=== PATIENT | male | born 1960 | race Caucasian/White ===

== ENCOUNTER 2018-05-13 14:40 | Inpatient (IN) | payer MEDICAID, OTHER, SELFPAY ==
[2018-05-13 15:31] LABS: HEMATOCRIT 33.3 % (42.0-52.0); HEMOGLOBIN 11.3 g/dl (13.5-17.5); MEAN CORPUSCULAR HEMOGLOBIN 31.5 pg (27.0-33.0); MEAN CORPUSCULAR HGB CONC 33.9 g/dl (32.0-36.5); MEAN CORPUSCULAR VOLUME 92.8 fl (80.0-96.0); PLATELET COUNT, AUTOMATED 244 10^3/uL (150-450); RED BLOOD COUNT 3.59 10^6/uL (4.30-6.10); RED CELL DISTRIBUTION WIDTH 13.3 % (11.5-14.5); WHITE BLOOD COUNT 5.3 10^3/uL (4.0-10.0)
[2018-05-13 16:06] LABS: ACETAMINOPHEN LEVEL 2.5 UG/ML (10.0-30.0); ALBUMIN 3.2 GM/DL (3.2-5.2); ALBUMIN/GLOBULIN RATIO 1.28 (1.00-1.93); ALKALINE PHOSPHATASE 64 U/L (45-117); ALT/SGPT 17 U/L (12-78); ANION GAP 6 MEQ/L (8-16); AST/SGOT 39 U/L (7-37); BILIRUBIN,DIRECT 0.2 MG/DL (0.0-0.2); BILIRUBIN,TOTAL 0.9 MG/DL (0.2-1.0); BLOOD UREA NITROGEN 6 MG/DL (7-18); CALCIUM LEVEL 7.4 MG/DL (8.5-10.1); CARBON DIOXIDE LEVEL 28 MEQ/L (21-32); CHLORIDE LEVEL 105 MEQ/L (98-107); ETHYL ALCOHOL (ETHANOL) 0.004 % (0.000-0.010); GLOMERULAR FILTRATION RATE > 60.0 (>56); GLUCOSE, FASTING 93 MG/DL (70-100); POTASSIUM SERUM 4.1 MEQ/L (3.5-5.1); SALICYLATE LEVEL < 1.7 MG/DL (5.0-30.0); SODIUM LEVEL 139 MEQ/L (136-145); TOTAL PROTEIN 5.7 GM/DL (6.4-8.2)
[2018-05-13 16:24] LABS: AMPHETAMINES LEVEL URINE NEGATIVE (NEGATIVE); BARBITURATES URINE NEGATIVE (NEGATIVE); BENZODIAZEPINES URINE NEGATIVE (NEGATIVE); CANNABINOIDS URINE NEGATIVE (NEGATIVE); COCAINE METABOLITE URINE NEGATIVE (NEGATIVE); METHADONE URINE NEGATIVE (NEGATIVE); OPIATES URINE NEGATIVE (NEGATIVE); PHENCYCLIDINE URINE NEGATIVE (NEGATIVE)
[2018-05-13 16:32] LABS: FREE T4 0.54 NG/DL (0.76-1.46)
[2018-05-13] MEDS ORDERED: MOM 30ML SUSPENSION UDC PO (18:30)
[2018-05-13] MEDS ORDERED: ACETAMINOPHEN TAB 650MG DOSE (2X325MG) PO (18:30)
[2018-05-13] MEDS ORDERED: MAALOX 30 ML SUSP *UDC PO (18:30)
[2018-05-13] MEDS ORDERED: traZODone 50 MG TAB PO (18:30)
[2018-05-13] MEDS: NICOTINE 21MG/24HR 1 EA TRANSDERMAL TD (18:58)
[2018-05-13] MEDS ORDERED: NICOTINE 21MG/24HR 1 EA TRANSDERMAL TD (21:00)
[2018-05-14] MEDS ORDERED: LEVOTHYROXINE 25MCG TABLET (0.025MG) PO (06:00)
[2018-05-14] MEDS: LEVOTHYROXINE 25MCG TABLET (0.025MG) PO (06:29)
[2018-05-14] MEDS: NICOTINE 21MG/24HR 1 EA TRANSDERMAL TD (08:53)
[2018-05-15] MEDS: LEVOTHYROXINE 25MCG TABLET (0.025MG) PO (06:10)
[2018-05-15 07:46] LABS: BASO % 0.9 % (0.0-1.0); EOS # 0.2 10^3/uL (0.0-0.50); EOS % 4.1 % (0.0-3.0); HEMATOCRIT 30.7 % (42.0-52.0); HEMOGLOBIN 10.7 g/dl (13.5-17.5); IMMATURE GRANULOCYTE % 0.5 % (0-3.0); LYMPH # 2.3 10^3/uL (1.5-4.5); LYMPH % 51.8 % (24.0-44.0); MEAN CORPUSCULAR HGB CONC 34.9 g/dl (32.0-36.5); MEAN CORPUSCULAR VOLUME 91.9 fl (80.0-96.0); MONO # 0.4 10^3/uL (0.0-0.8); MONO % 8.3 % (0.0-5.0); NEUTROPHILS # 1.5 10^3/uL (1.8-7.7); NEUTROPHILS % 34.4 % (36.0-66.0); PLATELET COUNT, AUTOMATED 243 10^3/uL (150-450); RED BLOOD COUNT 3.34 10^6/uL (4.30-6.10); RED CELL DISTRIBUTION WIDTH 13.2 % (11.5-14.5); WHITE BLOOD COUNT 4.4 10^3/uL (4.0-10.0)
[2018-05-15 08:10] LABS: FERRITIN 276 NG/ML (26-388); IRON (FE) 63 UG/DL (65-175); PERCENT SATURATION 42.9 % (19.7-50.0); TOTAL IRON BINDING CAPACITY 147 UG/DL (250-450)
[2018-05-15] MEDS: CALCIUM/VITAMIN D 500 MG TAB PO ×2 (08:58→20:30)
[2018-05-15] MEDS: NICOTINE 21MG/24HR 1 EA TRANSDERMAL TD (08:58)
[2018-05-15] MEDS: VITAMIN D 50,000 UNITS CAPSULE (ERGOCALCIFEROL 1.25MG) PO (10:52)
[2018-05-15] MEDS: FERROUS SULFATE 325MG TAB PO (15:24)
[2018-05-16] MEDS: LEVOTHYROXINE 25MCG TABLET (0.025MG) PO (06:16)
[2018-05-16 07:14] LABS: BASO % 0.7 % (0.0-1.0); EOS # 0.2 10^3/uL (0.0-0.50); EOS % 3.5 % (0.0-3.0); HEMATOCRIT 29.8 % (42.0-52.0); HEMOGLOBIN 10.3 g/dl (13.5-17.5); IMMATURE GRANULOCYTE % 0.2 % (0-3.0); LYMPH # 2.2 10^3/uL (1.5-4.5); LYMPH % 51.8 % (24.0-44.0); MEAN CORPUSCULAR HEMOGLOBIN 31.7 pg (27.0-33.0); MEAN CORPUSCULAR HGB CONC 34.6 g/dl (32.0-36.5); MEAN CORPUSCULAR VOLUME 91.7 fl (80.0-96.0); MONO # 0.4 10^3/uL (0.0-0.8); MONO % 9.2 % (0.0-5.0); NEUTROPHILS # 1.5 10^3/uL (1.8-7.7); NEUTROPHILS % 34.6 % (36.0-66.0); PLATELET COUNT, AUTOMATED 223 10^3/uL (150-450); RED BLOOD COUNT 3.25 10^6/uL (4.30-6.10); RED CELL DISTRIBUTION WIDTH 13.2 % (11.5-14.5); WHITE BLOOD COUNT 4.2 10^3/uL (4.0-10.0)
[2018-05-16 08:04] LABS: ALBUMIN 3.1 GM/DL (3.2-5.2); ALBUMIN/GLOBULIN RATIO 1.15 (1.00-1.93); ALKALINE PHOSPHATASE 60 U/L (45-117); ALT/SGPT 15 U/L (12-78); ANION GAP 5 MEQ/L (8-16); AST/SGOT 33 U/L (7-37); BILIRUBIN,TOTAL 0.8 MG/DL (0.2-1.0); BLOOD UREA NITROGEN 10 MG/DL (7-18); CALCIUM LEVEL 8.3 MG/DL (8.5-10.1); CARBON DIOXIDE LEVEL 27 MEQ/L (21-32); CHLORIDE LEVEL 106 MEQ/L (98-107); CREATININE FOR GFR 0.85 MG/DL (0.70-1.30); GLOMERULAR FILTRATION RATE > 60.0 (>56); GLUCOSE, FASTING 80 MG/DL (70-100); POTASSIUM SERUM 4.3 MEQ/L (3.5-5.1); SODIUM LEVEL 138 MEQ/L (136-145); TOTAL PROTEIN 5.8 GM/DL (6.4-8.2)
[2018-05-16] MEDS: FERROUS SULFATE 325MG TAB PO (08:22)
[2018-05-16] MEDS: NICOTINE 21MG/24HR 1 EA TRANSDERMAL TD (08:22)
[2018-05-16] MEDS: CALCIUM/VITAMIN D 500 MG TAB PO ×2 (08:22→20:54)
[2018-05-17] MEDS: LEVOTHYROXINE 25MCG TABLET (0.025MG) PO (06:20)
[2018-05-17] MEDS: CALCIUM/VITAMIN D 500 MG TAB PO ×2 (08:55→21:07)
[2018-05-17] MEDS: FERROUS SULFATE 325MG TAB PO ×2 (08:56→21:07)
[2018-05-17] MEDS: NICOTINE 21MG/24HR 1 EA TRANSDERMAL TD (08:57)
[2018-05-17] MEDS: NEPHRO-VIT TAB (NEPHROCAPS) PO (18:12)
[2018-05-18] MEDS: LEVOTHYROXINE 50MCG TABLET (0.05MG) PO (06:19)
[2018-05-18 08:00] LABS: FERRITIN 252 NG/ML (26-388)
[2018-05-18] MEDS: FERROUS SULFATE 325MG TAB PO ×2 (09:28→20:11)
[2018-05-18] MEDS: NEPHRO-VIT TAB (NEPHROCAPS) PO (09:28)
[2018-05-18] MEDS: CALCIUM/VITAMIN D 500 MG TAB PO ×2 (09:28→20:11)
[2018-05-18] MEDS: NICOTINE 21MG/24HR 1 EA TRANSDERMAL TD (09:28)
[2018-05-19] MEDS: LEVOTHYROXINE 50MCG TABLET (0.05MG) PO (05:54)
[2018-05-19 07:22] LABS: HEMATOCRIT 29.8 % (42.0-52.0); HEMOGLOBIN 10.1 g/dl (13.5-17.5); MEAN CORPUSCULAR HGB CONC 33.9 g/dl (32.0-36.5); MEAN CORPUSCULAR VOLUME 94.3 fl (80.0-96.0); PLATELET COUNT, AUTOMATED 220 10^3/uL (150-450); RED BLOOD COUNT 3.16 10^6/uL (4.30-6.10); RED CELL DISTRIBUTION WIDTH 13.7 % (11.5-14.5); WHITE BLOOD COUNT 4.6 10^3/uL (4.0-10.0)
[2018-05-19] MEDS: CALCIUM/VITAMIN D 500 MG TAB PO ×2 (09:20→20:16)
[2018-05-19] MEDS: FERROUS SULFATE 325MG TAB PO ×2 (09:20→20:16)
[2018-05-19] MEDS: NICOTINE 21MG/24HR 1 EA TRANSDERMAL TD (09:20)
[2018-05-19] MEDS: NEPHRO-VIT TAB (NEPHROCAPS) PO (09:20)
[2018-05-19 16:53] LABS: LEAD BLOOD ADULT 1 ug/dL (0-4)
[2018-05-20] MEDS: LEVOTHYROXINE 50MCG TABLET (0.05MG) PO (06:39)
[2018-05-20 07:28] LABS: HEMATOCRIT 31.2 % (42.0-52.0); HEMOGLOBIN 10.5 g/dl (13.5-17.5); MEAN CORPUSCULAR HEMOGLOBIN 31.6 pg (27.0-33.0); MEAN CORPUSCULAR HGB CONC 33.7 g/dl (32.0-36.5); PLATELET COUNT, AUTOMATED 226 10^3/uL (150-450); RED BLOOD COUNT 3.32 10^6/uL (4.30-6.10); RED CELL DISTRIBUTION WIDTH 13.4 % (11.5-14.5); WHITE BLOOD COUNT 4.8 10^3/uL (4.0-10.0)
[2018-05-20 07:56] LABS: ALBUMIN 3.2 GM/DL (3.2-5.2); ALBUMIN/GLOBULIN RATIO 1.14 (1.00-1.93); ALKALINE PHOSPHATASE 56 U/L (45-117); ALT/SGPT 17 U/L (12-78); ANION GAP 6 MEQ/L (8-16); AST/SGOT 31 U/L (7-37); BILIRUBIN,TOTAL 0.6 MG/DL (0.2-1.0); BLOOD UREA NITROGEN 14 MG/DL (7-18); CALCIUM LEVEL 8.4 MG/DL (8.5-10.1); CARBON DIOXIDE LEVEL 28 MEQ/L (21-32); CHLORIDE LEVEL 106 MEQ/L (98-107); GLOMERULAR FILTRATION RATE > 60.0 (>56); GLUCOSE, FASTING 67 MG/DL (70-100); POTASSIUM SERUM 4.3 MEQ/L (3.5-5.1); SODIUM LEVEL 140 MEQ/L (136-145)
[2018-05-20] MEDS: NICOTINE 21MG/24HR 1 EA TRANSDERMAL TD (08:55)
[2018-05-20] MEDS: NEPHRO-VIT TAB (NEPHROCAPS) PO (08:55)
[2018-05-20] MEDS: CALCIUM/VITAMIN D 500 MG TAB PO ×2 (08:55→21:00)
[2018-05-20] MEDS: FERROUS SULFATE 325MG TAB PO ×2 (08:55→21:00)
[2018-05-21] MEDS: LEVOTHYROXINE 50MCG TABLET (0.05MG) PO (06:24)
[2018-05-21] MEDS: NICOTINE 21MG/24HR 1 EA TRANSDERMAL TD (09:56)
[2018-05-21] MEDS: NEPHRO-VIT TAB (NEPHROCAPS) PO (09:57)
[2018-05-21] MEDS: CALCIUM/VITAMIN D 500 MG TAB PO ×2 (09:57→22:12)
[2018-05-21] MEDS: FERROUS SULFATE 325MG TAB PO ×2 (09:57→21:20)
[2018-05-22] MEDS: LEVOTHYROXINE 50MCG TABLET (0.05MG) PO (06:12)
[2018-05-22] MEDS: NICOTINE 21MG/24HR 1 EA TRANSDERMAL TD (09:23)
[2018-05-22] MEDS: NEPHRO-VIT TAB (NEPHROCAPS) PO (09:23)
[2018-05-22] MEDS: VITAMIN D 50,000 UNITS CAPSULE (ERGOCALCIFEROL 1.25MG) PO (09:23)
[2018-05-22] MEDS: FERROUS SULFATE 325MG TAB PO (09:23)
[2018-05-22] MEDS: CALCIUM/VITAMIN D 500 MG TAB PO (11:43)
== END 2018-05-22 16:48 | disposition home or self-care (01) | DRG 751 ==
LOC: M ED 14:40 → M ED INP 18:17 → M PSY 19:43
DX: F32.3 Major depressive disorder, single episode, severe with psychotic features (principal); E55.9 Vitamin D deficiency, unspecified; E03.9 Hypothyroidism, unspecified; Z79.899 Other long term (current) drug therapy; F17.210 Nicotine dependence, cigarettes, uncomplicated; E87.6 Hypokalemia; R63.6 Underweight; Z68.1 Body mass index [BMI] 19.9 or less, adult; D64.9 Anemia, unspecified

== ENCOUNTER 2018-07-05 09:49 | Inpatient (IN) | payer MEDICAID, OTHER ==
[2018-07-05 11:05] LABS: HEMOGLOBIN 13.1 g/dl (13.5-17.5); MEAN CORPUSCULAR HEMOGLOBIN 32.4 pg (27.0-33.0); MEAN CORPUSCULAR HGB CONC 34.5 g/dl (32.0-36.5); MEAN CORPUSCULAR VOLUME 94.1 fl (80.0-96.0); PLATELET COUNT, AUTOMATED 253 10^3/uL (150-450); RED BLOOD COUNT 4.04 10^6/uL (4.30-6.10); WHITE BLOOD COUNT 5.4 10^3/uL (4.0-10.0)
[2018-07-05 11:23] LABS: AMPHETAMINES LEVEL URINE NEGATIVE (NEGATIVE); BARBITURATES URINE NEGATIVE (NEGATIVE); BENZODIAZEPINES URINE NEGATIVE (NEGATIVE); CANNABINOIDS URINE NEGATIVE (NEGATIVE); COCAINE METABOLITE URINE NEGATIVE (NEGATIVE); METHADONE URINE NEGATIVE (NEGATIVE); OPIATES URINE NEGATIVE (NEGATIVE); PHENCYCLIDINE URINE NEGATIVE (NEGATIVE)
[2018-07-05 11:49] LABS: ACETAMINOPHEN LEVEL < 2.0 UG/ML (10.0-30.0); ALBUMIN 3.8 GM/DL (3.2-5.2); ALBUMIN/GLOBULIN RATIO 1.46 (1.00-1.93); ALKALINE PHOSPHATASE 55 U/L (45-117); ALT/SGPT 19 U/L (12-78); ANION GAP 5 MEQ/L (8-16); AST/SGOT 31 U/L (7-37); BILIRUBIN,DIRECT 0.2 MG/DL (0.0-0.2); BILIRUBIN,TOTAL 0.9 MG/DL (0.2-1.0); BLOOD UREA NITROGEN 11 MG/DL (7-18); CALCIUM LEVEL 8.4 MG/DL (8.5-10.1); CARBON DIOXIDE LEVEL 28 MEQ/L (21-32); CHLORIDE LEVEL 105 MEQ/L (98-107); CREATININE FOR GFR 0.96 MG/DL (0.70-1.30); ETHYL ALCOHOL (ETHANOL) 0.003 % (0.000-0.010); FREE T4 0.36 NG/DL (0.76-1.46); GLOMERULAR FILTRATION RATE > 60.0 (>56); GLUCOSE, FASTING 62 MG/DL (70-100); POTASSIUM SERUM 4.3 MEQ/L (3.5-5.1); SALICYLATE LEVEL 2.4 MG/DL (5.0-30.0); SODIUM LEVEL 138 MEQ/L (136-145); TOTAL PROTEIN 6.4 GM/DL (6.4-8.2)
[2018-07-05] MEDS: LEVOTHYROXINE 50MCG TABLET (0.05MG) PO (12:25)
[2018-07-05] MEDS ORDERED: MOM 30ML SUSPENSION UDC PO (13:15)
[2018-07-05] MEDS ORDERED: LORazepam 1 MG TAB PO (13:15)
[2018-07-05] MEDS ORDERED: MAALOX 30 ML SUSP *UDC PO (13:15)
[2018-07-05] MEDS ORDERED: ACETAMINOPHEN TAB 650MG DOSE (2X325MG) PO (13:15)
[2018-07-05] MEDS ORDERED: OLANZapine ORAL DISINTEGRATING TAB 5MG PO (13:15)
[2018-07-05] MEDS: NEPHRO-VIT TAB (NEPHROCAPS) PO (15:39)
[2018-07-05] MEDS: MULTIVITAMINS/MINERALS THERAP 1 TAB PO (15:39)
[2018-07-05] MEDS: NICOTINE 21MG/24HR 1 EA TRANSDERMAL TD (17:19)
[2018-07-05] MEDS: OYSTER SHELL CALCIUM 500 MG TAB PO (20:25)
[2018-07-05] MEDS: FERROUS SULFATE 325MG TAB PO (20:25)
[2018-07-06] MEDS: LEVOTHYROXINE 50MCG TABLET (0.05MG) PO (06:05)
[2018-07-06] MEDS: FERROUS SULFATE 325MG TAB PO ×2 (08:49→20:44)
[2018-07-06] MEDS: OYSTER SHELL CALCIUM 500 MG TAB PO ×2 (08:49→20:44)
[2018-07-06] MEDS: MULTIVITAMINS/MINERALS THERAP 1 TAB PO (08:49)
[2018-07-06] MEDS: VITAMIN D 50,000 UNITS CAPSULE (ERGOCALCIFEROL 1.25MG) PO (08:49)
[2018-07-06] MEDS: NEPHRO-VIT TAB (NEPHROCAPS) PO (08:49)
[2018-07-06] MEDS: NICOTINE 21MG/24HR 1 EA TRANSDERMAL TD (08:49)
[2018-07-06] MEDS: PALIPERIDONE 3 MG ER TAB (INVEGA) PO (14:54)
[2018-07-07] MEDS: LEVOTHYROXINE 50MCG TABLET (0.05MG) PO (05:09)
[2018-07-07] MEDS: FERROUS SULFATE 325MG TAB PO ×2 (08:58→21:47)
[2018-07-07] MEDS: NEPHRO-VIT TAB (NEPHROCAPS) PO (08:59)
[2018-07-07] MEDS: OYSTER SHELL CALCIUM 500 MG TAB PO ×2 (08:59→21:47)
[2018-07-07] MEDS: PALIPERIDONE 3 MG ER TAB (INVEGA) PO (08:59)
[2018-07-07] MEDS: MULTIVITAMINS/MINERALS THERAP 1 TAB PO (08:59)
[2018-07-07] MEDS: NICOTINE 21MG/24HR 1 EA TRANSDERMAL TD (08:59)
[2018-07-08] MEDS: LEVOTHYROXINE 50MCG TABLET (0.05MG) PO (06:20)
[2018-07-08 06:45] LABS: BASO % 0.5 % (0.0-1.0); EOS # 0.2 10^3/uL (0.0-0.50); EOS % 4.1 % (0.0-3.0); HEMATOCRIT 30.8 % (42.0-52.0); HEMOGLOBIN 10.7 g/dl (13.5-17.5); IMMATURE GRANULOCYTE % 0.2 % (0-3.0); LYMPH # 2.1 10^3/uL (1.5-4.5); MEAN CORPUSCULAR HEMOGLOBIN 32.8 pg (27.0-33.0); MEAN CORPUSCULAR HGB CONC 34.7 g/dl (32.0-36.5); MEAN CORPUSCULAR VOLUME 94.5 fl (80.0-96.0); MONO # 0.4 10^3/uL (0.0-0.8); MONO % 9.8 % (0.0-5.0); NEUTROPHILS # 1.4 10^3/uL (1.8-7.7); NEUTROPHILS % 34.4 % (36.0-66.0); PLATELET COUNT, AUTOMATED 172 10^3/uL (150-450); RED BLOOD COUNT 3.26 10^6/uL (4.30-6.10); WHITE BLOOD COUNT 4.2 10^3/uL (4.0-10.0)
[2018-07-08 07:07] LABS: ALBUMIN 3.2 GM/DL (3.2-5.2); ALBUMIN/GLOBULIN RATIO 1.39 (1.00-1.93); ALKALINE PHOSPHATASE 47 U/L (45-117); ALT/SGPT 25 U/L (12-78); ANION GAP 6 MEQ/L (8-16); AST/SGOT 41 U/L (7-37); BILIRUBIN,TOTAL 0.5 MG/DL (0.2-1.0); BLOOD UREA NITROGEN 17 MG/DL (7-18); CALCIUM LEVEL 8.4 MG/DL (8.5-10.1); CARBON DIOXIDE LEVEL 28 MEQ/L (21-32); CHLORIDE LEVEL 106 MEQ/L (98-107); GLOMERULAR FILTRATION RATE > 60.0 (>56); GLUCOSE, FASTING 95 MG/DL (70-100); POTASSIUM SERUM 4.2 MEQ/L (3.5-5.1); SODIUM LEVEL 140 MEQ/L (136-145); TOTAL PROTEIN 5.5 GM/DL (6.4-8.2)
[2018-07-08] MEDS: MULTIVITAMINS/MINERALS THERAP 1 TAB PO (08:24)
[2018-07-08] MEDS: NICOTINE 21MG/24HR 1 EA TRANSDERMAL TD (08:24)
[2018-07-08] MEDS: NEPHRO-VIT TAB (NEPHROCAPS) PO (08:24)
[2018-07-08] MEDS: PALIPERIDONE 3 MG ER TAB (INVEGA) PO (08:24)
[2018-07-08] MEDS: FERROUS SULFATE 325MG TAB PO ×2 (08:24→21:11)
[2018-07-08] MEDS: OYSTER SHELL CALCIUM 500 MG TAB PO ×2 (08:24→21:11)
[2018-07-09] MEDS: LEVOTHYROXINE 50MCG TABLET (0.05MG) PO (06:00)
[2018-07-09] MEDS: PALIPERIDONE 3 MG ER TAB (INVEGA) PO (09:50)
[2018-07-09] MEDS: MULTIVITAMINS/MINERALS THERAP 1 TAB PO (09:50)
[2018-07-09] MEDS: NEPHRO-VIT TAB (NEPHROCAPS) PO (09:50)
[2018-07-09] MEDS: OYSTER SHELL CALCIUM 500 MG TAB PO ×2 (09:51→21:38)
[2018-07-09] MEDS: FERROUS SULFATE 325MG TAB PO ×2 (09:51→21:38)
[2018-07-09] MEDS: NICOTINE 21MG/24HR 1 EA TRANSDERMAL TD (09:54)
[2018-07-10] MEDS: LEVOTHYROXINE 50MCG TABLET (0.05MG) PO (06:22)
[2018-07-10] MEDS: OYSTER SHELL CALCIUM 500 MG TAB PO ×2 (09:26→20:38)
[2018-07-10] MEDS: MULTIVITAMINS/MINERALS THERAP 1 TAB PO (09:26)
[2018-07-10] MEDS: PALIPERIDONE 3 MG ER TAB (INVEGA) PO ×2 (09:26→20:38)
[2018-07-10] MEDS: FERROUS SULFATE 325MG TAB PO ×2 (09:26→20:38)
[2018-07-10] MEDS: NEPHRO-VIT TAB (NEPHROCAPS) PO (09:26)
[2018-07-10] MEDS: NICOTINE 21MG/24HR 1 EA TRANSDERMAL TD (09:27)
[2018-07-10 11:29] LABS: FREE THYROXINE INDEX 1.4 % (1.4-3.8); T UPTAKE 30 % (33-40); THYROXINE (T4) 4.7 UG/DL (4.5-12.0)
[2018-07-11] MEDS: LEVOTHYROXINE 75MCG TABLET (0.075MG) PO (06:31)
[2018-07-11] MEDS: FERROUS SULFATE 325MG TAB PO ×2 (09:17→22:19)
[2018-07-11] MEDS: PALIPERIDONE 3 MG ER TAB (INVEGA) PO ×2 (09:18→22:19)
[2018-07-11] MEDS: NEPHRO-VIT TAB (NEPHROCAPS) PO (09:18)
[2018-07-11] MEDS: OYSTER SHELL CALCIUM 500 MG TAB PO ×2 (09:18→22:19)
[2018-07-11] MEDS: NICOTINE 21MG/24HR 1 EA TRANSDERMAL TD (09:19)
[2018-07-11] MEDS: MULTIVITAMINS/MINERALS THERAP 1 TAB PO (09:19)
[2018-07-12] MEDS: LEVOTHYROXINE 75MCG TABLET (0.075MG) PO (06:45)
[2018-07-12] MEDS: PALIPERIDONE 3 MG ER TAB (INVEGA) PO ×2 (08:45→20:07)
[2018-07-12] MEDS: NICOTINE 21MG/24HR 1 EA TRANSDERMAL TD (08:46)
[2018-07-12] MEDS: FERROUS SULFATE 325MG TAB PO ×2 (08:46→20:07)
[2018-07-12] MEDS: OYSTER SHELL CALCIUM 500 MG TAB PO ×2 (08:46→20:07)
[2018-07-12] MEDS: MULTIVITAMINS/MINERALS THERAP 1 TAB PO (08:46)
[2018-07-12] MEDS: NEPHRO-VIT TAB (NEPHROCAPS) PO (08:46)
[2018-07-12 14:23] LABS: FREE THYROXINE INDEX 1.6 % (1.4-3.8); T UPTAKE 26 % (33-40); THYROXINE (T4) 6.1 UG/DL (4.5-12.0)
[2018-07-13] MEDS: LEVOTHYROXINE 75MCG TABLET (0.075MG) PO (06:21)
[2018-07-13] MEDS: NEPHRO-VIT TAB (NEPHROCAPS) PO (09:25)
[2018-07-13] MEDS: MULTIVITAMINS/MINERALS THERAP 1 TAB PO (09:25)
[2018-07-13] MEDS: OYSTER SHELL CALCIUM 500 MG TAB PO ×2 (09:25→20:26)
[2018-07-13] MEDS: PALIPERIDONE 3 MG ER TAB (INVEGA) PO ×2 (09:25→20:26)
[2018-07-13] MEDS: FERROUS SULFATE 325MG TAB PO ×2 (09:25→20:26)
[2018-07-13] MEDS: VITAMIN D 50,000 UNITS CAPSULE (ERGOCALCIFEROL 1.25MG) PO (09:25)
[2018-07-13] MEDS: NICOTINE 21MG/24HR 1 EA TRANSDERMAL TD (09:30)
[2018-07-14] MEDS: LEVOTHYROXINE 75MCG TABLET (0.075MG) PO (06:19)
[2018-07-14] MEDS: NEPHRO-VIT TAB (NEPHROCAPS) PO (09:25)
[2018-07-14] MEDS: MULTIVITAMINS/MINERALS THERAP 1 TAB PO (09:25)
[2018-07-14] MEDS: OYSTER SHELL CALCIUM 500 MG TAB PO ×2 (09:25→21:25)
[2018-07-14] MEDS: PALIPERIDONE 3 MG ER TAB (INVEGA) PO ×2 (09:25→21:25)
[2018-07-14] MEDS: FERROUS SULFATE 325MG TAB PO ×2 (09:25→21:25)
[2018-07-14] MEDS: NICOTINE 21MG/24HR 1 EA TRANSDERMAL TD (09:27)
[2018-07-14] MEDS: traZODone 50 MG TAB PO (21:25)
[2018-07-15] MEDS: LEVOTHYROXINE 75MCG TABLET (0.075MG) PO (06:07)
[2018-07-15] MEDS: NEPHRO-VIT TAB (NEPHROCAPS) PO (08:30)
[2018-07-15] MEDS: NICOTINE 21MG/24HR 1 EA TRANSDERMAL TD (08:30)
[2018-07-15] MEDS: OYSTER SHELL CALCIUM 500 MG TAB PO ×2 (08:30→23:05)
[2018-07-15] MEDS: MULTIVITAMINS/MINERALS THERAP 1 TAB PO (08:30)
[2018-07-15] MEDS: FERROUS SULFATE 325MG TAB PO ×2 (08:31→23:05)
[2018-07-15] MEDS: PALIPERIDONE 3 MG ER TAB (INVEGA) PO ×2 (08:31→23:05)
[2018-07-16] MEDS: LEVOTHYROXINE 75MCG TABLET (0.075MG) PO (06:14)
[2018-07-16] MEDS: MULTIVITAMINS/MINERALS THERAP 1 TAB PO (09:09)
[2018-07-16] MEDS: NICOTINE 21MG/24HR 1 EA TRANSDERMAL TD (09:09)
[2018-07-16] MEDS: NEPHRO-VIT TAB (NEPHROCAPS) PO (09:09)
[2018-07-16] MEDS: FERROUS SULFATE 325MG TAB PO ×2 (09:09→21:32)
[2018-07-16] MEDS: PALIPERIDONE 3 MG ER TAB (INVEGA) PO ×2 (09:09→21:32)
[2018-07-16] MEDS: OYSTER SHELL CALCIUM 500 MG TAB PO ×2 (09:09→21:32)
[2018-07-17] MEDS: LEVOTHYROXINE 75MCG TABLET (0.075MG) PO (06:17)
[2018-07-17] MEDS: PALIPERIDONE 3 MG ER TAB (INVEGA) PO ×2 (09:49→20:30)
[2018-07-17] MEDS: NEPHRO-VIT TAB (NEPHROCAPS) PO (09:49)
[2018-07-17] MEDS: MULTIVITAMINS/MINERALS THERAP 1 TAB PO (09:49)
[2018-07-17] MEDS: OYSTER SHELL CALCIUM 500 MG TAB PO ×2 (09:49→20:30)
[2018-07-17] MEDS: FERROUS SULFATE 325MG TAB PO ×2 (09:49→20:30)
[2018-07-17] MEDS: NICOTINE 21MG/24HR 1 EA TRANSDERMAL TD (09:50)
[2018-07-17 11:42] LABS: T UPTAKE 30 % (33-40); THYROXINE (T4) 6.6 UG/DL (4.5-12.0)
[2018-07-17 13:57] LABS: FREE T4 0.68 NG/DL (0.76-1.46)
[2018-07-18] MEDS: LEVOTHYROXINE 100MCG TABLET (0.1MG) PO (06:12)
[2018-07-18 07:16] LABS: HEMATOCRIT 29.5 % (42.0-52.0); HEMOGLOBIN 10.2 g/dl (13.5-17.5); MEAN CORPUSCULAR HEMOGLOBIN 32.1 pg (27.0-33.0); MEAN CORPUSCULAR HGB CONC 34.6 g/dl (32.0-36.5); MEAN CORPUSCULAR VOLUME 92.8 fl (80.0-96.0); PLATELET COUNT, AUTOMATED 191 10^3/uL (150-450); RED BLOOD COUNT 3.18 10^6/uL (4.30-6.10); RED CELL DISTRIBUTION WIDTH 12.7 % (11.5-14.5); WHITE BLOOD COUNT 4.2 10^3/uL (4.0-10.0)
[2018-07-18 07:42] LABS: ALKALINE PHOSPHATASE 41 U/L (45-117); ALT/SGPT 30 U/L (12-78); ANION GAP 5 MEQ/L (8-16); AST/SGOT 37 U/L (7-37); BILIRUBIN,TOTAL 0.7 MG/DL (0.2-1.0); BLOOD UREA NITROGEN 12 MG/DL (7-18); CALCIUM LEVEL 7.9 MG/DL (8.5-10.1); CARBON DIOXIDE LEVEL 31 MEQ/L (21-32); CHLORIDE LEVEL 103 MEQ/L (98-107); CREATININE FOR GFR 0.82 MG/DL (0.70-1.30); GLOMERULAR FILTRATION RATE > 60.0 (>56); GLUCOSE, FASTING 83 MG/DL (70-100); POTASSIUM SERUM 4.4 MEQ/L (3.5-5.1); SODIUM LEVEL 139 MEQ/L (136-145); TOTAL PROTEIN 5.5 GM/DL (6.4-8.2)
[2018-07-18] MEDS: NEPHRO-VIT TAB (NEPHROCAPS) PO (09:24)
[2018-07-18] MEDS: OYSTER SHELL CALCIUM 500 MG TAB PO ×2 (09:24→20:54)
[2018-07-18] MEDS: MULTIVITAMINS/MINERALS THERAP 1 TAB PO (09:24)
[2018-07-18] MEDS: NICOTINE 21MG/24HR 1 EA TRANSDERMAL TD (09:24)
[2018-07-18] MEDS: FERROUS SULFATE 325MG TAB PO ×2 (09:24→20:54)
[2018-07-18] MEDS: PALIPERIDONE 3 MG ER TAB (INVEGA) PO ×2 (09:25→20:54)
[2018-07-19] MEDS: LEVOTHYROXINE 100MCG TABLET (0.1MG) PO (05:58)
[2018-07-19] MEDS: OYSTER SHELL CALCIUM 500 MG TAB PO ×2 (09:20→21:24)
[2018-07-19] MEDS: MULTIVITAMINS/MINERALS THERAP 1 TAB PO (09:20)
[2018-07-19] MEDS: NEPHRO-VIT TAB (NEPHROCAPS) PO (09:20)
[2018-07-19] MEDS: FERROUS SULFATE 325MG TAB PO ×2 (09:20→21:24)
[2018-07-19] MEDS: PALIPERIDONE 3 MG ER TAB (INVEGA) PO ×2 (09:20→21:24)
[2018-07-19] MEDS: NICOTINE 21MG/24HR 1 EA TRANSDERMAL TD (09:21)
[2018-07-19 18:30] LABS: ALBUMIN 3.2 GM/DL (3.2-5.2); ALBUMIN/GLOBULIN RATIO 1.28 (1.00-1.93); ALKALINE PHOSPHATASE 44 U/L (45-117); ALT/SGPT 35 U/L (12-78); ANION GAP 5 MEQ/L (8-16); AST/SGOT 48 U/L (7-37); BILIRUBIN,TOTAL 0.7 MG/DL (0.2-1.0); BLOOD UREA NITROGEN 14 MG/DL (7-18); CALCIUM LEVEL 8.4 MG/DL (8.5-10.1); CARBON DIOXIDE LEVEL 30 MEQ/L (21-32); CHLORIDE LEVEL 100 MEQ/L (98-107); CREATININE FOR GFR 0.87 MG/DL (0.70-1.30); GLOMERULAR FILTRATION RATE > 60.0 (>56); GLUCOSE, FASTING 82 MG/DL (70-100); POTASSIUM SERUM 4.3 MEQ/L (3.5-5.1); SODIUM LEVEL 135 MEQ/L (136-145); TOTAL PROTEIN 5.7 GM/DL (6.4-8.2)
[2018-07-19 18:39] LABS: BASO % 0.7 % (0.0-1.0); EOS # 0.2 10^3/uL (0.0-0.50); EOS % 3.8 % (0.0-3.0); HEMATOCRIT 32.1 % (42.0-52.0); HEMOGLOBIN 11.2 g/dl (13.5-17.5); IMMATURE GRANULOCYTE % 0.2 % (0-3.0); LYMPH # 1.9 10^3/uL (1.5-4.5); LYMPH % 44.6 % (24.0-44.0); MEAN CORPUSCULAR HGB CONC 34.9 g/dl (32.0-36.5); MEAN CORPUSCULAR VOLUME 94.7 fl (80.0-96.0); MONO # 0.4 10^3/uL (0.0-0.8); NEUTROPHILS # 1.8 10^3/uL (1.8-7.7); NEUTROPHILS % 41.7 % (36.0-66.0); PLATELET COUNT, AUTOMATED 218 10^3/uL (150-450); RED BLOOD COUNT 3.39 10^6/uL (4.30-6.10); WHITE BLOOD COUNT 4.2 10^3/uL (4.0-10.0)
[2018-07-19] MEDS: PALIPERIDONE PALMITATE 234 MG/1.5 ML INJ (INVEGA SUSTENNA)(J2426) IM (21:26)
[2018-07-20] MEDS: LEVOTHYROXINE 125MCG TABLET (0.125MG) PO (06:05)
[2018-07-20] MEDS: NICOTINE 21MG/24HR 1 EA TRANSDERMAL TD ×2 (09:00→10:02)
[2018-07-20 09:15] LABS: HEMATOCRIT 29.3 % (42.0-52.0); HEMOGLOBIN 10.2 g/dl (13.5-17.5); MEAN CORPUSCULAR HEMOGLOBIN 32.5 pg (27.0-33.0); MEAN CORPUSCULAR HGB CONC 34.8 g/dl (32.0-36.5); MEAN CORPUSCULAR VOLUME 93.3 fl (80.0-96.0); PLATELET COUNT, AUTOMATED 178 10^3/uL (150-450); RED BLOOD COUNT 3.14 10^6/uL (4.30-6.10); WHITE BLOOD COUNT 4.5 10^3/uL (4.0-10.0)
[2018-07-20 09:51] LABS: ALBUMIN/GLOBULIN RATIO 1.15 (1.00-1.93); ALKALINE PHOSPHATASE 38 U/L (45-117); ALT/SGPT 34 U/L (12-78); ANION GAP 5 MEQ/L (8-16); AST/SGOT 45 U/L (7-37); BILIRUBIN,TOTAL 0.8 MG/DL (0.2-1.0); BLOOD UREA NITROGEN 16 MG/DL (7-18); CALCIUM LEVEL 8.4 MG/DL (8.5-10.1); CARBON DIOXIDE LEVEL 30 MEQ/L (21-32); CHLORIDE LEVEL 99 MEQ/L (98-107); GLOMERULAR FILTRATION RATE > 60.0 (>56); GLUCOSE, FASTING 126 MG/DL (70-100); POTASSIUM SERUM 4.4 MEQ/L (3.5-5.1); SODIUM LEVEL 134 MEQ/L (136-145); TOTAL PROTEIN 5.6 GM/DL (6.4-8.2)
[2018-07-20] MEDS: NEPHRO-VIT TAB (NEPHROCAPS) PO (09:53)
[2018-07-20] MEDS: OYSTER SHELL CALCIUM 500 MG TAB PO ×2 (09:53→20:52)
[2018-07-20] MEDS: PALIPERIDONE 3 MG ER TAB (INVEGA) PO ×2 (09:53→20:53)
[2018-07-20] MEDS: MULTIVITAMINS/MINERALS THERAP 1 TAB PO (09:53)
[2018-07-20] MEDS: VITAMIN D 50,000 UNITS CAPSULE (ERGOCALCIFEROL 1.25MG) PO (09:53)
[2018-07-20] MEDS: FERROUS SULFATE 325MG TAB PO ×2 (09:53→20:52)
[2018-07-20] MEDS: PANTOPRAZOLE 40MG TAB (PROTONIX) PO (09:54)
[2018-07-20 17:05] LABS: HEMATOCRIT 28.6 % (42.0-52.0); HEMOGLOBIN 10.2 g/dl (13.5-17.5); MEAN CORPUSCULAR HEMOGLOBIN 32.5 pg (27.0-33.0); MEAN CORPUSCULAR HGB CONC 35.7 g/dl (32.0-36.5); MEAN CORPUSCULAR VOLUME 91.1 fl (80.0-96.0); PLATELET COUNT, AUTOMATED 216 10^3/uL (150-450); RED BLOOD COUNT 3.14 10^6/uL (4.30-6.10)
[2018-07-21] MEDS: LEVOTHYROXINE 125MCG TABLET (0.125MG) PO (06:32)
[2018-07-21 06:59] LABS: HEMATOCRIT 29.2 % (42.0-52.0); HEMOGLOBIN 10.4 g/dl (13.5-17.5); MEAN CORPUSCULAR HEMOGLOBIN 32.6 pg (27.0-33.0); MEAN CORPUSCULAR HGB CONC 35.6 g/dl (32.0-36.5); MEAN CORPUSCULAR VOLUME 91.5 fl (80.0-96.0); PLATELET COUNT, AUTOMATED 209 10^3/uL (150-450); RED BLOOD COUNT 3.19 10^6/uL (4.30-6.10); RED CELL DISTRIBUTION WIDTH 12.8 % (11.5-14.5); WHITE BLOOD COUNT 4.5 10^3/uL (4.0-10.0)
[2018-07-21 07:23] LABS: ALBUMIN 3.2 GM/DL (3.2-5.2); ALBUMIN/GLOBULIN RATIO 1.52 (1.00-1.93); ALKALINE PHOSPHATASE 40 U/L (45-117); ALT/SGPT 33 U/L (12-78); ANION GAP 4 MEQ/L (8-16); AST/SGOT 38 U/L (7-37); BILIRUBIN,TOTAL 0.8 MG/DL (0.2-1.0); BLOOD UREA NITROGEN 14 MG/DL (7-18); CALCIUM LEVEL 8.4 MG/DL (8.5-10.1); CARBON DIOXIDE LEVEL 31 MEQ/L (21-32); CHLORIDE LEVEL 99 MEQ/L (98-107); CREATININE FOR GFR 0.78 MG/DL (0.70-1.30); GLOMERULAR FILTRATION RATE > 60.0 (>56); GLUCOSE, FASTING 72 MG/DL (70-100); POTASSIUM SERUM 4.8 MEQ/L (3.5-5.1); SODIUM LEVEL 134 MEQ/L (136-145); TOTAL PROTEIN 5.3 GM/DL (6.4-8.2)
[2018-07-21] MEDS: OYSTER SHELL CALCIUM 500 MG TAB PO ×2 (09:47→20:57)
[2018-07-21] MEDS: MULTIVITAMINS/MINERALS THERAP 1 TAB PO (09:47)
[2018-07-21] MEDS: NEPHRO-VIT TAB (NEPHROCAPS) PO (09:47)
[2018-07-21] MEDS: PANTOPRAZOLE 40MG TAB (PROTONIX) PO (09:47)
[2018-07-21] MEDS: NICOTINE 21MG/24HR 1 EA TRANSDERMAL TD (09:47)
[2018-07-21] MEDS: FERROUS SULFATE 325MG TAB PO ×2 (09:47→20:58)
[2018-07-21] MEDS: PALIPERIDONE 3 MG ER TAB (INVEGA) PO ×2 (09:48→20:58)
[2018-07-22] MEDS: LEVOTHYROXINE 125MCG TABLET (0.125MG) PO (06:04)
[2018-07-22] MEDS: NICOTINE 21MG/24HR 1 EA TRANSDERMAL TD (09:00)
[2018-07-22] MEDS: PALIPERIDONE 3 MG ER TAB (INVEGA) PO (09:20)
[2018-07-22] MEDS: PANTOPRAZOLE 40MG TAB (PROTONIX) PO (09:20)
[2018-07-22] MEDS: NEPHRO-VIT TAB (NEPHROCAPS) PO (09:20)
[2018-07-22] MEDS: MULTIVITAMINS/MINERALS THERAP 1 TAB PO (09:20)
[2018-07-22] MEDS: OYSTER SHELL CALCIUM 500 MG TAB PO ×2 (09:20→21:13)
[2018-07-22] MEDS: FERROUS SULFATE 325MG TAB PO ×2 (09:20→21:13)
[2018-07-23] MEDS: LEVOTHYROXINE 125MCG TABLET (0.125MG) PO (05:55)
[2018-07-23] MEDS: NEPHRO-VIT TAB (NEPHROCAPS) PO (09:00)
[2018-07-23] MEDS: PANTOPRAZOLE 40MG TAB (PROTONIX) PO (14:57)
[2018-07-23] MEDS: OYSTER SHELL CALCIUM 500 MG TAB PO ×2 (14:57→19:53)
[2018-07-23] MEDS: FERROUS SULFATE 325MG TAB PO ×2 (14:57→19:53)
[2018-07-23] MEDS: MULTIVITAMINS/MINERALS THERAP 1 TAB PO (14:57)
[2018-07-23] MEDS: NICOTINE 21MG/24HR 1 EA TRANSDERMAL TD (14:58)
[2018-07-24] MEDS: LEVOTHYROXINE 125MCG TABLET (0.125MG) PO (06:18)
[2018-07-24 06:57] LABS: HEMOGLOBIN 10.9 g/dl (13.5-17.5); MEAN CORPUSCULAR HEMOGLOBIN 32.2 pg (27.0-33.0); MEAN CORPUSCULAR HGB CONC 35.2 g/dl (32.0-36.5); MEAN CORPUSCULAR VOLUME 91.7 fl (80.0-96.0); PLATELET COUNT, AUTOMATED 194 10^3/uL (150-450); RED BLOOD COUNT 3.38 10^6/uL (4.30-6.10); RED CELL DISTRIBUTION WIDTH 12.7 % (11.5-14.5); WHITE BLOOD COUNT 3.8 10^3/uL (4.0-10.0)
[2018-07-24 07:22] LABS: ALBUMIN 3.4 GM/DL (3.2-5.2); ALBUMIN/GLOBULIN RATIO 1.31 (1.00-1.93); ALKALINE PHOSPHATASE 49 U/L (45-117); ALT/SGPT 38 U/L (12-78); ANION GAP 7 MEQ/L (8-16); AST/SGOT 46 U/L (7-37); BILIRUBIN,TOTAL 0.8 MG/DL (0.2-1.0); BLOOD UREA NITROGEN 14 MG/DL (7-18); CALCIUM LEVEL 8.2 MG/DL (8.5-10.1); CARBON DIOXIDE LEVEL 29 MEQ/L (21-32); CHLORIDE LEVEL 98 MEQ/L (98-107); CREATININE FOR GFR 0.85 MG/DL (0.70-1.30); FREE T4 0.99 NG/DL (0.76-1.46); GLOMERULAR FILTRATION RATE > 60.0 (>56); GLUCOSE, FASTING 73 MG/DL (70-100); POTASSIUM SERUM 4.3 MEQ/L (3.5-5.1); SODIUM LEVEL 134 MEQ/L (136-145)
[2018-07-24 08:57] LABS: SLIDE REVIEW Report
[2018-07-24 08:58] LABS: SOURCE PERIPHERAL SMEAR
[2018-07-24 08:59] LABS: REASON FOR REVIEW WBC/LEUKEMIA/BLAST
[2018-07-24] MEDS: MULTIVITAMINS/MINERALS THERAP 1 TAB PO (09:26)
[2018-07-24] MEDS: OYSTER SHELL CALCIUM 500 MG TAB PO ×2 (09:26→20:21)
[2018-07-24] MEDS: FERROUS SULFATE 325MG TAB PO ×2 (09:26→20:21)
[2018-07-24] MEDS: NEPHRO-VIT TAB (NEPHROCAPS) PO (09:26)
[2018-07-24] MEDS: PANTOPRAZOLE 40MG TAB (PROTONIX) PO (09:26)
[2018-07-24] MEDS: NICOTINE 21MG/24HR 1 EA TRANSDERMAL TD (09:27)
[2018-07-24 11:28] LABS: HEPATITIS B SURFACE ANTIGEN NEGATIVE (NEGATIVE)
[2018-07-24 11:55] LABS: HEPATITIS B CORE ANTIBODY IGM NEGATIVE (NEGATIVE); HEPATITIS C VIRUS ABY INDEX 0.1 INDEX (<0.8)
[2018-07-24 11:58] LABS: HEPATITIS A ANTIBODY IGM NEGATIVE (NEGATIVE)
[2018-07-24] MEDS: PALIPERIDONE PALMITATE 156 MG/1ML INJ(INVEGA SUSTENNA)(J2426) IM (16:39)
[2018-07-25] MEDS ORDERED: LEVOTHYROXINE 100MCG TABLET (0.1MG) PO (06:00)
[2018-07-25] MEDS: LEVOTHYROXINE 75MCG TABLET (0.075MG) PO (06:39)
[2018-07-25] MEDS: MULTIVITAMINS/MINERALS THERAP 1 TAB PO (09:11)
[2018-07-25] MEDS: PANTOPRAZOLE 40MG TAB (PROTONIX) PO (09:11)
[2018-07-25] MEDS: OYSTER SHELL CALCIUM 500 MG TAB PO ×2 (09:12→20:51)
[2018-07-25] MEDS: NICOTINE 21MG/24HR 1 EA TRANSDERMAL TD (09:12)
[2018-07-25] MEDS: NEPHRO-VIT TAB (NEPHROCAPS) PO (09:12)
[2018-07-25] MEDS: FERROUS SULFATE 325MG TAB PO ×2 (09:12→20:51)
[2018-07-26] MEDS: LEVOTHYROXINE 50MCG TABLET (0.05MG) PO (06:54)
[2018-07-26] MEDS: NICOTINE 21MG/24HR 1 EA TRANSDERMAL TD (09:00)
[2018-07-26] MEDS: MULTIVITAMINS/MINERALS THERAP 1 TAB PO (09:50)
[2018-07-26] MEDS: OYSTER SHELL CALCIUM 500 MG TAB PO ×2 (09:50→20:59)
[2018-07-26] MEDS: PANTOPRAZOLE 40MG TAB (PROTONIX) PO (09:50)
[2018-07-26] MEDS: FERROUS SULFATE 325MG TAB PO ×2 (09:50→20:59)
[2018-07-26] MEDS: NEPHRO-VIT TAB (NEPHROCAPS) PO (09:50)
[2018-07-26 10:37] LABS: FREE THYROXINE INDEX 3.6 % (1.4-3.8); T UPTAKE 33 % (33-40); THYROXINE (T4) 10.8 UG/DL (4.5-12.0)
[2018-07-27] MEDS ORDERED: LEVOTHYROXINE 75MCG TABLET (0.075MG) PO (06:00)
[2018-07-27] MEDS: LEVOTHYROXINE 100MCG TABLET (0.1MG) PO (06:10)
[2018-07-27] MEDS: NICOTINE 21MG/24HR 1 EA TRANSDERMAL TD (09:00)
[2018-07-27] MEDS: MULTIVITAMINS/MINERALS THERAP 1 TAB PO (09:49)
[2018-07-27] MEDS: SERTRALINE HCL 50 MG TAB PO (09:49)
[2018-07-27] MEDS: FERROUS SULFATE 325MG TAB PO (09:49)
[2018-07-27] MEDS: VITAMIN D 50,000 UNITS CAPSULE (ERGOCALCIFEROL 1.25MG) PO (09:49)
[2018-07-27] MEDS: OYSTER SHELL CALCIUM 500 MG TAB PO (09:49)
[2018-07-27] MEDS: PANTOPRAZOLE 40MG TAB (PROTONIX) PO (09:49)
[2018-07-27] MEDS: NEPHRO-VIT TAB (NEPHROCAPS) PO (09:49)
== END 2018-07-27 13:45 | disposition home or self-care (01) | DRG 751 ==
LOC: M PSY 07-19 12:14 → M ED 09:49 → M ED INP 13:14 → M PSY 13:42
PROVIDERS: Psychiatry & Neurology Psychiatry
DX: F29 Unspecified psychosis not due to a substance or known physiological condition (principal); I95.9 Hypotension, unspecified; E55.9 Vitamin D deficiency, unspecified; E83.51 Hypocalcemia; D64.9 Anemia, unspecified; E03.9 Hypothyroidism, unspecified; F17.200 Nicotine dependence, unspecified, uncomplicated; Z68.1 Body mass index [BMI] 19.9 or less, adult; R63.6 Underweight; Z79.899 Other long term (current) drug therapy; Z88.8 Allergy status to other drugs, medicaments and biological substances

== ENCOUNTER 2018-08-07 14:48 | Inpatient (IN) | payer MEDICAID, OTHER ==
[~2018-08-07] VITALS: Ht 177.8 cm; Wt 59.7 kg
[~2018-08-07 14:48] MED LIST: ARIP5TA PO; CALCD50TA PO; CALCI50TA PO; CENTCHW4 PO; DRIS50003 PO; FERR1TAB8 PO; INVE234I IM; LEVO100T5 PO; LEVO50TA5 PO; NEPHTA PO; NICO21PAT TD; PANT40TA3 PO; SERT50TA PO; TRAZ-160 PO; TRAZO50TA PO; VITMTA PO
[2018-08-07] MEDS ORDERED: NS 1,000 ML IV SCH (15:15)
[2018-08-07 15:24] LABS: BASO % 0.6 % (0.0-1.0); EOS # 0.2 10^3/uL (0.0-0.50); EOS % 3.4 % (0.0-3.0); HEMATOCRIT 34.1 % (42.0-52.0); HEMOGLOBIN 11.9 g/dl (13.5-17.5); LYMPH # 1.9 10^3/uL (1.5-4.5); LYMPH % 37.9 % (24.0-44.0); MEAN CORPUSCULAR HEMOGLOBIN 32.8 pg (27.0-33.0); MEAN CORPUSCULAR HGB CONC 34.9 g/dl (32.0-36.5); MEAN CORPUSCULAR VOLUME 93.9 fl (80.0-96.0); MONO # 0.4 10^3/uL (0.0-0.8); MONO % 7.5 % (0.0-5.0); NEUTROPHILS # 2.6 10^3/uL (1.8-7.7); NEUTROPHILS % 50.4 % (36.0-66.0); PLATELET COUNT, AUTOMATED 183 10^3/uL (150-450); RED BLOOD COUNT 3.63 10^6/uL (4.30-6.10); WHITE BLOOD COUNT 5.1 10^3/uL (4.0-10.0)
[2018-08-07 15:30] LABS: VENOUS PH 7.309 UNITS (7.330-7.430)
[2018-08-07] MEDS ORDERED: NS 1,000 ML IV ONE (15:30)
[2018-08-07 15:31] LABS: VENOUS BASE EXCESS -1.9 (-2.0-2.0); VENOUS HCO3 24.8 MEQ/L (23.0-27.0); VENOUS O2 SATURATION 65.3 % (60.0-80.0); VENOUS PARTIAL PRESSURE CO2 50.6 mmHg (38.0-50.0); VENOUS PARTIAL PRESSURE O2 38.1 mmHg (30.0-50.0); VENOUS STANDARD HCO3 22.2 MEQ/L; VENOUS TOTAL CO2 26.4 MEQ/L (24.0-28.0)
[2018-08-07 16:59] LABS: ACETAMINOPHEN LEVEL < 2.0 UG/ML (10.0-30.0); ALBUMIN 3.6 GM/DL (3.2-5.2); ALT/SGPT 28 U/L (12-78); BILIRUBIN,DIRECT 0.2 MG/DL (0.0-0.2); BILIRUBIN,TOTAL 0.8 MG/DL (0.2-1.0); BLOOD UREA NITROGEN 9 MG/DL (7-18); CALCIUM LEVEL 8.4 MG/DL (8.5-10.1); CARBON DIOXIDE LEVEL 21 MEQ/L (21-32); CHLORIDE LEVEL 103 MEQ/L (98-107); CPK CREATINE PHOSPHOKINASE 235 U/L (39-308); CREATININE FOR GFR 0.93 MG/DL (0.70-1.30); ETHYL ALCOHOL (ETHANOL) < 0.003 % (0.000-0.010); GLOMERULAR FILTRATION RATE > 60.0 (>56); GLUCOSE, FASTING 68 MG/DL (70-100); MAGNESIUM LEVEL 1.8 MG/DL (1.8-2.4); PHOSPHORUS LEVEL 4.2 MG/DL (2.5-4.9); POTASSIUM SERUM 3.9 MEQ/L (3.5-5.1); SALICYLATE LEVEL < 1.7 MG/DL (5.0-30.0); SODIUM LEVEL 136 MEQ/L (136-145); TOTAL PROTEIN 6.2 GM/DL (6.4-8.2)
--- NOTE | 2018-08-07 17:12 | ECGEPIP ---
Stationary ECG Study [facility] - ED Test Date: 2018-08-07 Pat Name: YARIEL VILLARREAL Department: Room: - Gender: M Radio Program Director: isaiah : 1960 Requested By: Elida Verde Order Number: [id number] Reading MD: Elida Verde Measurements Intervals [place] Rate: 79 P: 78 MO: 167 QRS: 107 QRSD: 98 T: 6 QT: 404 QTc: 465 Interpretive Statements SINUS RHYTHM MARKED RIGHT AXIS DEVIATION INCOMPLETE RIGHT BUNDLE BRANCH BLOCK NONSPECIFIC T-WAVE ABNORMALITY SIMILAR 07/14/18 Electronically Signed On 08-07-2018 17:11:47 EST by Elida Verde
[2018-08-07] MEDS ORDERED: SYNT100T PO (19:56)
[2018-08-07] MEDS ORDERED: CALCI50TA PO (19:56)
[2018-08-07] MEDS ORDERED: TRAZ-160 PO (19:56)
[2018-08-07] MEDS ORDERED: PANT40TA3 PO (19:56)
[2018-08-07] MEDS ORDERED: INVE234I IM (19:56)
[2018-08-07] MEDS ORDERED: FERR1TAB8 PO (19:56)
[2018-08-07] MEDS ORDERED: SERT50TA PO (19:56)
[2018-08-07] MEDS ORDERED: ABIL1TAB11 PO (19:56)
[2018-08-07 21:41] LABS: AMPHETAMINES LEVEL URINE NEGATIVE (NEGATIVE); BARBITURATES URINE NEGATIVE (NEGATIVE); BENZODIAZEPINES URINE NEGATIVE (NEGATIVE); CANNABINOIDS URINE NEGATIVE (NEGATIVE); COCAINE METABOLITE URINE NEGATIVE (NEGATIVE); METHADONE URINE NEGATIVE (NEGATIVE); OPIATES URINE NEGATIVE (NEGATIVE); PHENCYCLIDINE URINE NEGATIVE (NEGATIVE)
[2018-08-07] MEDS ORDERED: MOM 30ML SUSPENSION UDC PO PRN (22:15)
[2018-08-07] MEDS ORDERED: traZODone 50 MG TAB PO PRN (22:15)
[2018-08-07] MEDS ORDERED: MAALOX 30 ML SUSP *UDC PO PRN (22:15)
[2018-08-07] MEDS ORDERED: ACETAMINOPHEN TAB 650MG DOSE (2X325MG) PO PRN (22:15)
[2018-08-07 23:58] VITALS: BP 122/80
[2018-08-08] MEDS: LEVOTHYROXINE 100MCG TABLET (0.1MG) PO SCH (06:32)
[2018-08-08 06:46] VITALS: BP 121/59
[2018-08-08] MEDS: PANTOPRAZOLE 40MG TAB (PROTONIX) PO SCH (08:45)
[2018-08-08] MEDS: FERROUS SULFATE 325MG TAB PO SCH ×2 (08:45→20:32)
[2018-08-08] MEDS: OYSTER SHELL CALCIUM 500 MG TAB PO SCH ×2 (08:45→20:31)
[2018-08-08] MEDS: NEPHRO-VIT TAB (NEPHROCAPS) PO SCH (08:45)
--- NOTE | 2018-08-08 14:08 | MHHPE ---
DATE OF ADMISSION: 08/07/2018 IDENTIFYING DATA: He is a 58-year-old male, single, who was brought by the family member for possible overdose of Invega injection and accidentally was given earlier and patient is complaining of some extrapyramidal symptoms (EPS). CHIEF COMPLAINT: "I hear and see people near my house." HISTORY OF PRESENT ILLNESS: The patient was discharged from [facility] ([facility]) about two weeks ago with followup Invega injection of 234 mg every month. However, the patient accidentally had it earlier and has developed some extrapyramidal symptoms, slowness, and he also complains of some psychotic symptoms that he hears and sees things. The patient has bradykinesia. During his last admission, he was having similar complaints of hearing and seeing things and he has also bizarre delusions that others are cutting into his house with laser beams. The patient is depressed and somewhat sluggish. PAST PSYCHIATRIC HISTORY: He had two previous psychiatric hospitalizations. He was on other medications like Abilify in the past. PREVIOUS SUICIDE HISTORY: He denies. PAST MEDICAL HISTORY: He has a history of hypothyroidism. He also has a history of head injury. FAMILY HISTORY: Father had heart disease and in 1979 from heart attack. States mother and two brothers are healthy. His both brothers have sleep apnea and they have continuous positive airway pressure (CPAP) devices. DRUG AND ALCOHOL HISTORY: The patient denies any drug or alcohol use. SOCIAL HISTORY: States his father was in the and had been very strict with the children. Reports he had a very good childhood. He was born in [place]. There is no history of any abuse. His education is he has two years of college in trade school. 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 MENTAL STATUS EXAMINATION: Casually dressed, cooperative with good personal hygiene. Psychomotor activity is retarded with some bradykinesia. Denies any suicidal or homicidal ideas. He has some visual and auditory hallucinations, some paranoia. His insight and judgment are limited. VITAL SIGNS: Temperature 98.8, pulse is 75, respiratory rate 16, blood pressure 121/59. REVIEW OF SYSTEMS: CONSTITUTIONAL: Denies any night sweats, fever, weight loss. HEENT: Negative for epistaxis, headache, hearing loss, sore throat. RESPIRATORY: No cough. No shortness of breath. No wheezing. CARDIOVASCULAR: No chest pain. No dyspnea. GASTROINTESTINAL: No abdominal pain. No change in bowel habits. GENITOURINARY: No dysuria. No trouble voiding. No hematuria. MUSCULOSKELETAL: Negative for gait disturbances, joint pain, joint swelling, and muscular pain. NEUROLOGICAL: Negative for gait disturbances, numbness, tingling and dizziness. LABORATORY DATA: CBC: RBC was 3.6, hemoglobin 11.9, mildly anemic. His TSH was 3.9, slightly high. Otherwise, CMP within acceptable limits. Toxicology was negative. DIAGNOSES: 1. Unspecified psychotic disorder, rule out schizophrenia. 2. Hypothyroidism. 3. Anemia. ASSESSMENT AND PLAN: 1. Admit to inpatient mental health unit (IMHU). 2. The patient will be seen by physician assistant producer (PA) for medical needs. 3. He will be seen by physical therapy (PT), occupational therapy (OT), community mental health social worker and case management. 4. The patient will be placed on all proper precautions like 15 minutes check and suicide precaution. 5. He will participate in appropriate activities, individual, group and milieu therapy. Considering the patient has increased dose of paliperidone, I will discontinue his aripiprazole and place him on Cogentin 1 mg twice daily and observe him. ESTIMATED LENGTH OF STAY: 4-5 days.
[2018-08-08] MEDS ORDERED: OLANZapine 5 MG TAB PO PRN (16:15)
[2018-08-08 18:00] VITALS: BP 86/52
[2018-08-08] MEDS: traZODone 50 MG TAB PO SCH (20:31)
[2018-08-08] MEDS: SERTRALINE HCL 50 MG TAB PO SCH (20:31)
[2018-08-08] MEDS: BENZTROPINE 1 MG TAB PO SCH (20:31)
[2018-08-09] MEDS: LEVOTHYROXINE 100MCG TABLET (0.1MG) PO SCH (06:11)
[2018-08-09 07:00] VITALS: BP 97/52
[2018-08-09] MEDS: FERROUS SULFATE 325MG TAB PO SCH ×2 (09:33→20:34)
[2018-08-09] MEDS: PANTOPRAZOLE 40MG TAB (PROTONIX) PO SCH (09:34)
[2018-08-09] MEDS: NEPHRO-VIT TAB (NEPHROCAPS) PO SCH (09:34)
[2018-08-09] MEDS: OYSTER SHELL CALCIUM 500 MG TAB PO SCH ×2 (09:34→20:34)
[2018-08-09] MEDS: BENZTROPINE 1 MG TAB PO SCH ×2 (09:34→20:34)
--- NOTE | 2018-08-09 15:54 | HPE ---
DATE OF ADMISSION: 08/07/2018 DATE OF SERVICE: 08/08/2018 HISTORY OF PRESENT ILLNESS: Please refer to the psychiatric history and evaluation for further details on this admission. This examination and history is intended for medical issues which may need treatment, followup or consultation on this 58-year-old male. PRIMARY CARE PROVIDER: ALLERGIES: SOCIAL HISTORY: He is . ETOH - none. Smokes - He states he is not smoking. Recreational drug use - none. PAST MEDICAL HISTORY: Hypothyroidism. He was started on medication at the time of his admission 05/24/2018. History of psychosis. History of anemia. PAST SURGICAL HISTORY: Laser surgery repair for retinal tear right eye. FAMILY HISTORY: Father from a heart attack. Mother alive and healthy. EKG: Sinus rhythm. Borderline right axis deviation and complete right bundle branch block done 05/17/2018. HOME MEDICATIONS: LABORATORY DATA: WBC 5.1, hemoglobin 11.9, hematocrit 34.1, platelets 183. Electrolytes were normal. BUN was 9. Creatinine 0.93. He has a glucose of 68. Calcium 8.4. TSH was 3.940. REVIEW OF SYSTEMS: 10-systems review was done and was unremarkable. Patient had no complaints. PHYSICAL EXAMINATION: 58-year-old thin male. No acute distress. Vital signs stable. Height 70 inches. Weight 59.7 kg. BMI 18.9. Blood pressure 121/60, pulse 75, respirations 16, temperature 98.8. The patient is alert and oriented times three. Pupils equal and reactive to light. Extraocular movements intact. Cornea and sclera clear. Conjunctiva normal. No facial asymmetry. Pharynx, tongue, and gums pink and moist. Tongue is midline. Neck is supple, without lymphadenopathy. No thyromegaly. No goiter. Carotids 2+ without bruit. Chest clear to auscultation, without wheeze or retraction. Heart is regular. Abdomen benign. Bowel sounds positive. /Rectal: Not done. Extremities show equal strength. Full range of motion. No cyanosis, clubbing or edema. Peripheral pulses equal and palpable bilaterally. Skin is warm and dry. IMPRESSION AND PLAN: Psychiatric: Plan per psychiatry. Hypothyroidism: TSH 3.940. Will get a thyroid profile in the morning. May need dose adjustment. History of vitamin D deficiency: Continue with vitamin D supplement. Will get a level. Underweight. BMI noted to be 18.9. Will get a nutritional consult. Will order Ensure twice a day. Monitor daily weight. History of anemia. Will check iron levels.
--- NOTE | 2018-08-09 16:14 | MHIPNPDOC ---
[facility] Progress Note Progress Note DATE OF SERVICE: 08/09/18 HISTORY: As per Dr. Randolph: " CHIEF COMPLAINT: "I hear and see people near my house." HISTORY OF PRESENT ILLNESS: The patient was discharged from [facility] ([facility]) about two weeks ago with followup Invega injection of 234 mg every month. However, the patient accidentally had it earlier and has developed some extrapyramidal symptoms, slowness, and he also complains of some psychotic symptoms that he hears and sees things. The patient has bradykinesia. During his last admission, he was having similar complaints of hearing and seeing things and he has also bizarre delusions that others are cutting into his house with laser beams. The patient is depressed and somewhat sluggish." VITAL SIGNS: See below. NEW TEST RESULTS: See below CURRENT MEDICATIONS: See below. MENTAL STATUS EXAMINATION: Patient is a 58 year old male, who is alert, cooperative, laying in bed, dressed in hospital clothes, lips are swollen. Speech: Is slow, low volume, normal tone. Language skills are good. Thought processes including: intact. Thought content: He continues to report that he sees private investigators that go around his house, he says they spy on him. This has been a constant theme for his delusion. Description of abnormal or psychotic thoughts: Paranoid and persecutory delusions. Judgment: Limited Insight: Poor Orientation: x 3. Recent and remote memory: fair. Attention span and concentration: good. Language: normal. Fund of knowledge: good. Mood: depressed. Affect: congruent with mood, depressed, constricted. DIAGNOSES: 1. Delusional disorder 2. Hypothyroidism ASSESSMENT: Patient is having EPS, he received an extra dose of Invega when he had just been discharged from [facility]. He continues to be delusional, he is receiving treatment for EPS. MANAGEMENT PLAN: Benztropine 1 mg PO BID and Zyprexa 5 mgs PO Q6h prn for anxiety and agitation. TIME SPENT: 20 minutes. Vital Signs Vital Signs Date Time Temp Pulse Resp B/P (MAP) Pulse Ox O2 Delivery O2 Flow Rate FiO2 08/09/18 08:23 Room Air 08/09/18 07:00 97.2 68 16 97/52 (67) 08/07/18 23:58 99 Laboratory Data 24H Labs Laboratory Tests 2 08/09/18 06:28: Iron Level 92 Current Medications Current Medications Acetaminophen (Tylenol Tab) 650 mg Q6HP PRN PO HEADACHE or DISCOMFORT; Start 08/07/18 at 22:15 Al Hydrox/Mg Hydrox/Simethicone (Mylanta) 30 ml Q4HP PRN PO HEARTBURN/INDIGESTION; Start 08/07/18 at 22:15 Aripiprazole (AbiLIFY) 2.5 mg QHS PO ; Start 08/08/18 at 21:00; Status Cancel Benztropine Mesylate (Cogentin) 1 mg BID PO Last administered on 08/09/18 09:34; Start 08/08/18 at 21:00 Calcium Carbonate (Oscal) 500 mg BID PO Last administered on 08/09/18 09:34; Start 08/08/18 at 09:00 Ferrous Sulfate (Ferrous Sulfate) 325 mg BID PO Last administered on 08/09/18 09:33; Start 08/08/18 at 09:00 Home Med (Med Rec Complete!) ASDIRECTED XX ; Start 08/07/18 at 20:00; Stop 08/07/18 at 20:00; Status DC Levothyroxine Sodium (Synthroid) 100 mcg DAILY@0600 PO Last administered on 08/09/18at 06:11; Start 08/08/18 at 06:00 Magnesium Hydroxide (Milk Of Magnesia) 30 ml DAILYPRN PRN PO CONSTIPATION; Start 08/07/18 at 22:15 Olanzapine (ZyPREXA) 5 mg Q6HP PRN PO AGITATION; Start 08/08/18 at 16:15 Pantoprazole Sodium (Protonix) 40 mg DAILY PO Last administered on 08/09/18at 09:34; Start 08/08/18 at 09:00 Sertraline HCl (Zoloft) 50 mg QHS PO Last administered on 08/08/18at 20:31; Start 08/08/18 at 21:00 Sodium Chloride 1,000 ml @ 100 mls/hr Q10H IV Last administered on 08/07/18at 15:58; Start 08/07/18 at 15:15; Stop 08/08/18 at 03:09; Status DC Trazodone HCl (Desyrel) 50 mg QHS PO Last administered on 1/1/19at 20:31; Start 08/08/18 at 21:00 Trazodone HCl (Desyrel) 50 mg QHSP PRN PO INSOMNIA; Start 08/07/18 at 22:15 Vitamin B Complex/ Vit C/Folic Acid (Nephro-Linda Rx) 1 tab DAILY PO Last administered on 08/09/18at 09:34; Start 08/08/18 at 09:00 Vitamin D (Drisdol) 50,000 units Mo@09 PO ; Start 08/14/18 at 09:00 Allergies Coded Allergies: Alcohol (Verified Allergy, Severe, "raspy voice/constricted airway", 07/05/18) DAVID YUNG MD Aug 09, 2018 16:14
[2018-08-09 18:00] VITALS: BP 88/56
[2018-08-09] MEDS: SERTRALINE HCL 50 MG TAB PO SCH (20:34)
[2018-08-09] MEDS: traZODone 50 MG TAB PO SCH (20:34)
[2018-08-10] MEDS: LEVOTHYROXINE 100MCG TABLET (0.1MG) PO SCH (06:07)
[2018-08-10 06:52] VITALS: BP 94/58
[2018-08-10] MEDS: PANTOPRAZOLE 40MG TAB (PROTONIX) PO SCH (09:48)
[2018-08-10] MEDS: OYSTER SHELL CALCIUM 500 MG TAB PO SCH ×2 (09:48→21:35)
[2018-08-10] MEDS: FERROUS SULFATE 325MG TAB PO SCH ×2 (09:48→21:35)
[2018-08-10] MEDS: BENZTROPINE 1 MG TAB PO SCH ×2 (09:48→21:35)
[2018-08-10] MEDS: NEPHRO-VIT TAB (NEPHROCAPS) PO SCH (09:48)
[2018-08-10 18:00] VITALS: BP 115/69
--- NOTE | 2018-08-10 19:52 | MHIPNPDOC ---
[facility] Progress Note Progress Note DATE OF SERVICE: 08/10/18 HISTORY: As per Dr. Randolph: " CHIEF COMPLAINT: "I hear and see people near my house." HISTORY OF PRESENT ILLNESS: The patient was discharged from [facility] ([facility]) about two weeks ago with followup Invega injection of 234 mg every month. However, the patient accidentally had it earlier and has developed some extrapyramidal symptoms, slowness, and he also complains of some psychotic symptoms that he hears and sees things. The patient has bradykinesia. During his last admission, he was having similar complaints of hearing and seeing things and he has also bizarre delusions that others are cutting into his house with laser beams. The patient is depressed and somewhat sluggish." VITAL SIGNS: See below. NEW TEST RESULTS: See below CURRENT MEDICATIONS: See below. MENTAL STATUS EXAMINATION: Patient is a 58 year old male, who is alert, cooperative, laying in bed, dressed in hospital clothes, lips are less swollen than yesterday, but he reports he feels his tongue is still swollen Speech: Is slow, low volume, normal tone. Language skills are good. Thought processes including: intact. Thought content: He continues to report that he sees private investigators that go around his house, he says they spy on him. This has been a constant theme for his delusion. Description of abnormal or psychotic thoughts: Paranoid and persecutory delusions. Judgment: Limited Insight: Poor Orientation: x 3. Recent and remote memory: fair. Attention span and concentration: good. Language: normal. Fund of knowledge: good. Mood: depressed. Affect: congruent with mood, depressed, constricted. DIAGNOSES: 1. Delusional disorder 2. Hypothyroidism ASSESSMENT: Patient has improved, he is not rigid, but he still reports a swollen tongue. He is very sleepy during his evaluation. He talks constantly about his brother, whom he says, doesn't understand him. then he starts talking about his truck, that he says, stopped working and about his computer, that he says, stopped working too. He is not organized in his thoughts and he tries to explain that his brother was mad at him because he thought he had been using the camera in the computer, but then he says, that he didn't know there was a problem with the camera. this is the first time the patient presents like this, he will have to be closely monitored MANAGEMENT PLAN: Will continue with the same treatment plan TIME SPENT: 20 minutes. Vital Signs Vital Signs Date Time Temp Pulse Resp B/P (MAP) Pulse Ox O2 Delivery O2 Flow Rate FiO2 08/10/18 06:52 97.2 84 16 94/58 (70) 08/09/18 18:00 99 Room Air Current Medications Current Medications Acetaminophen (Tylenol Tab) 650 mg Q6HP PRN PO HEADACHE or DISCOMFORT; Start 08/07/18 at 22:15 Al Hydrox/Mg Hydrox/Simethicone (Mylanta) 30 ml Q4HP PRN PO HEARTBURN/INDIGESTION; Start 08/07/18 at 22:15 Aripiprazole (AbiLIFY) 2.5 mg QHS PO ; Start 08/08/18 at 21:00; Status Cancel Benztropine Mesylate (Cogentin) 1 mg BID PO Last administered on 08/10/18 09:48; Start 08/08/18 at 21:00 Calcium Carbonate (Oscal) 500 mg BID PO Last administered on 08/10/18 09:48; Start 08/08/18 at 09:00 Ferrous Sulfate (Ferrous Sulfate) 325 mg BID PO Last administered on 08/10/18 09:48; Start 08/08/18 at 09:00 Home Med (Med Rec Complete!) ASDIRECTED XX ; Start 08/07/18 at 20:00; Stop 08/07/18 at 20:00; Status DC Levothyroxine Sodium (Synthroid) 100 mcg DAILY@0600 PO Last administered on 08/10/18at 06:07; Start 08/08/18 at 06:00 Magnesium Hydroxide (Milk Of Magnesia) 30 ml DAILYPRN PRN PO CONSTIPATION; Start 08/07/18 at 22:15 Olanzapine (ZyPREXA) 5 mg Q6HP PRN PO AGITATION; Start 08/08/18 at 16:15 Pantoprazole Sodium (Protonix) 40 mg DAILY PO Last administered on 08/10/18 09:48; Start 08/08/18 at 09:00 Sertraline HCl (Zoloft) 50 mg QHS PO Last administered on 08/09/18at 20:34; Start 08/08/18 at 21:00 Sodium Chloride 1,000 ml @ 100 mls/hr Q10H IV Last administered on 08/07/18at 15:58; Start 08/07/18 at 15:15; Stop 08/08/18 at 03:09; Status DC Trazodone HCl (Desyrel) 50 mg QHS PO Last administered on 08/09/18at 20:34; Start 08/08/18 at 21:00 Trazodone HCl (Desyrel) 50 mg QHSP PRN PO INSOMNIA; Start 08/07/18 at 22:15 Vitamin B Complex/ Vit C/Folic Acid (Nephro-Linda Rx) 1 tab DAILY PO Last administered on 08/10/18at 09:48; Start 08/08/18 at 09:00 Vitamin D (Drisdol) 50,000 units Mo@09 PO ; Start 08/14/18 at 09:00 Allergies Coded Allergies: Alcohol (Verified Allergy, Severe, "raspy voice/constricted airway", 07/05/18) DAVID YUNG MD Aug 10, 2018 13:23
[2018-08-10] MEDS: traZODone 50 MG TAB PO SCH (21:35)
[2018-08-10] MEDS: SERTRALINE HCL 50 MG TAB PO SCH (21:35)
[2018-08-11] MEDS: LEVOTHYROXINE 100MCG TABLET (0.1MG) PO SCH (06:03)
[2018-08-11 06:33] VITALS: BP 106/55
[2018-08-11] MEDS: BENZTROPINE 1 MG TAB PO SCH (09:12)
[2018-08-11] MEDS: NEPHRO-VIT TAB (NEPHROCAPS) PO SCH (09:12)
[2018-08-11] MEDS: PANTOPRAZOLE 40MG TAB (PROTONIX) PO SCH (09:12)
[2018-08-11] MEDS: FERROUS SULFATE 325MG TAB PO SCH (09:12)
[2018-08-11] MEDS: OYSTER SHELL CALCIUM 500 MG TAB PO SCH (09:12)
[2018-08-11] MEDS ORDERED: PANT40TA3 PO (10:39)
[2018-08-11] MEDS ORDERED: TRAZ-160 PO (10:39)
[2018-08-11] MEDS ORDERED: BENZ-52 PO (10:39)
[2018-08-11] MEDS ORDERED: NEPHTA PO (10:39)
[2018-08-11] MEDS ORDERED: FERR1TAB8 PO (10:39)
[2018-08-11] MEDS ORDERED: SYNT100T PO (10:39)
[2018-08-11] MEDS ORDERED: INVE156I IM (10:39)
[2018-08-11] MEDS ORDERED: SERT50TA PO (10:39)
[2018-08-11] MEDS ORDERED: CALCI50TA PO (10:39)
--- NOTE | 2018-08-11 14:20 | MHDSPDOC ---
[facility] Discharge Summary Discharge Summary DATE OF ADMISSION: Aug 07, 2018 at 22:14 DATE OF DISCHARGE: Aug 11, 2018 at 13:55 DISCHARGE DIAGNOSES: 1. Delusional disorder 2. persistent depressive disorder. REASON FOR ADMISSION: HISTORY: As per Dr. Randolph: " CHIEF COMPLAINT: "I hear and see people near my house." HISTORY OF PRESENT ILLNESS: The patient was discharged from [facility] ([facility]) about two weeks ago with followup Invega injection of 234 mg every month. However, the patient accidentally had it earlier and has developed some extrapyramidal symptoms, slowness, and he also complains of some psychotic symptoms that he hears and sees things. The patient has bradykinesia. During his last admission, he was having similar complaints of hearing and seeing things and he has also bizarre delusions that others are cutting into his house with laser beams. The patient is depressed and somewhat sluggish." CONSULTANTS INVOLVED: None TREATMENT AND PROGRESS ON THE UNIT : Patient was admitted this time because he developed extrapyramidal side effects because he received an extra dose of Invega Sustenna as an outpatient. he had received 234 mgs IM while he was at [facility] and the other 156 mgs dose a week after. He was discharged and acouple of days after his discharge he received another 234 mgs dose, that he didn't need to receive at that time. He is aware that his outside providers got confused and he received the xtra dose from a pharmacy employee. At [facility] he was started on Cogentin 1 mg PO BID and since he was still taking Abilify, this was discontinued. His tongue was swollen and his lips too but the EPS and the swelling subsided. he had a good response to cogentin and since he was not floridly psychotic, he was not suicidal and he was not homicidal, he was discharged today to his mother who said she had no concerns on him going back home. specific instructions were written on the electronic script that was sent to the pharmacy and because he receive three doses in less than one month, last month, he will be receiving 156 mgs on September 17, not in September. HOSPITAL COURSE: As above DISCHARGE ASSESSMENT: patient was not in danger to self or others, was not suicidal, not homicidal. he has a persistent delusion about workers compensation investigators spying on him. MENTAL STATUS EXAMINATION ON DISCHARGE: Patient is a 58-year old male, who is alert, cooperative, pleasant, cooperative, with good eye contact. Speech is normal in rate, rhythm, tone and volume. Language skills are good. Thought processes including: intact. Thought content: still delusional about the investigators from workers compensation spying on him. Abstract reasoning, and computation: good Description of associations: good. Description of abnormal or psychotic thoughts: denies suicidal ideation, denies homicidal ideation.Reports that he still sees the worker's compensation's investigators around his house when he is in there and he still reports delusions about being investigated by them Judgment: fair. Insight: poor. Orientation to x 3 Recent and remote memory: fair. Attention span and concentration: good. Language: normal, structured, good vocabulary. Fund of knowledge: above average. Mood: a little anxious. Affect: brighter, still a little anxious but not depressed today . MEDICATIONS ON DISCHARGE: Scheduled Benztropine Mesylate (Benztropine Mesylate) 1 Mg Tab, 1 MG PO BID for EXTRAPYRAMIDAL SIDE EFFECTS, #14 Ferrous Sulfate (Ferrous Sulfate) 325 Mg Tab, 325 MG PO BID for anemia, #14 Levothyroxine Sodium (Synthroid) 100 Mcg Tab, 100 MCG PO DAILY for hypothyroidism, #7 Oyster Shell Calcium (Oyster Shell Calcium) 500 Mg Tab, 500 MG PO BID for nutritional suplement, #14 Paliperidone Palmitate (Invega Sustenna) 156 Mg/Ml Inj, 156 MG IM QMONTH for PSYCHOSIS, #1 PATIENT SHOULD RECEIVE HIS NEXT DOSE ON 09/17/18 Pantoprazole Sodium (Pantoprazole Sodium) 40 Mg Tab, 40 MG PO DAILY for GERD, #7 Sertraline Hcl (Sertraline HCl) 50 Mg Tab, 50 MG PO QHS for DEPRESSION, #7 Trazodone HCl (Trazodone HCl) 50 Mg Tab, 50 MG PO QHS for INSOMNIA, #7 Vitamin B Cmplx/Vitc/Folic Ac (Nephrocaps 1 mg) 1 Cap Cap, 1 CAP PO DAILY for ANEMIA, #7 Vitamin D (Drisdol) 50,000 Unit Cap, 50,000 UNIT PO 1XWK, (Reported) PLAN/FOLLOWUP ARRANGEMENTS: Follow Up Care Education Label * Mental Health Appt 1 * Mental Health [facility] * Established With This Provider Yes * Therapist IDRIS KHOURY * Date Aug 16, 2018 * Time 14:00 * Address of Clinic or Practice [address] [facility] * Follow Up Care Education Label * Medical * Medical Follow Up [facility] * Established With This Provider Yes * Therapist VADIM * Date Aug 18, 2018 * Time 13:40 * Address of Clinic or Practice [address] [facility] * Follow Up Care Education Label * Mental Health Appt 2 * Mental Health [facility] * Established With This Provider Yes * Date Aug 30, 2018 * Time 12:00 * Additional information Treg is to be seen 09/07 or 09/08 to receive invega sustenna 156mg The amount of time spent in the coordination of care for this patient was approximately 30 minutes. Vital Signs/I&Os Vital Signs Date Time Temp Pulse Resp B/P (MAP) Pulse Ox O2 Delivery O2 Flow Rate FiO2 08/11/18 06:33 97.8 65 16 106/55 (72) Room Air 08/09/18 18:00 99 Medications Scheduled Benztropine Mesylate (Benztropine Mesylate) 1 Mg Tab, 1 MG PO BID for EXTRAPYRAMIDAL SIDE EFFECTS, #14 Ferrous Sulfate (Ferrous Sulfate) 325 Mg Tab, 325 MG PO BID for anemia, #14 Levothyroxine Sodium (Synthroid) 100 Mcg Tab, 100 MCG PO DAILY for hypothyroidism, #7 Oyster Shell Calcium (Oyster Shell Calcium) 500 Mg Tab, 500 MG PO BID for nutritional suplement, #14 Paliperidone Palmitate (Invega Sustenna) 156 Mg/Ml Inj, 156 MG IM QMONTH for PSYCHOSIS, #1 PATIENT SHOULD RECEIVE HIS NEXT DOSE ON 09/17/18 Pantoprazole Sodium (Pantoprazole Sodium) 40 Mg Tab, 40 MG PO DAILY for GERD, #7 Sertraline Hcl (Sertraline HCl) 50 Mg Tab, 50 MG PO QHS for DEPRESSION, #7 Trazodone HCl (Trazodone HCl) 50 Mg Tab, 50 MG PO QHS for INSOMNIA, #7 Vitamin B Cmplx/Vitc/Folic Ac (Nephrocaps 1 mg) 1 Cap Cap, 1 CAP PO DAILY for ANEMIA, #7 Vitamin D (Drisdol) 50,000 Unit Cap, 50,000 UNIT PO 1XWK, (Reported) take on Tuesday Allergies Coded Allergies: Alcohol (Verified Allergy, Severe, "raspy voice/constricted airway", 07/05/18) DAVID YUNG MD Aug 11, 2018 14:20
[2018-08-14] MEDS ORDERED: VITAMIN D 50,000 UNITS CAPSULE (ERGOCALCIFEROL 1.25MG) PO SCH (09:00)
== END 2018-08-11 13:55 | disposition home or self-care (01) | DRG 760 ==
LOC: M ED 14:48 → M ED INP 22:14 → M PSY 23:31
PROVIDERS: ADMIT Psychiatry & Neurology Psychiatry; ATTEND Psychiatry & Neurology Psychiatry
DX: F22 Delusional disorders (principal); E55.9 Vitamin D deficiency, unspecified; F32.9 Major depressive disorder, single episode, unspecified; Z79.899 Other long term (current) drug therapy; Z91.09 Other allergy status, other than to drugs and biological substances; E03.9 Hypothyroidism, unspecified; Z68.1 Body mass index [BMI] 19.9 or less, adult; D64.9 Anemia, unspecified